=== PATIENT | female | born 1975 | race Caucasian/White ===

== ENCOUNTER 2017-01-30 08:26 | Observation (INO) | payer BC ==
[2017-01-07 12:45] VITALS: Ht 167.6 cm; Wt 63.5 kg
--- NOTE | 2017-01-07 13:17 | PAT Medication Instructions ---
Service Date January 07, 2017. Current Home Medication List Vwrmktw-Ozyjvitywotqq-Eojlmtzs (Excedrin Extra Strength), 1 TAB PO Q4-6HRS PRN for Pain Azathioprine (Imuran), 150 MG PO QPM Cetirizine (Zyrtec), 10 MG PO QAM Cholecalciferol (Vitamin D3), 2,000 INTERUNIT PO QAM Hydroxychloroquine Sulfate (Plaquenil), 400 MG PO QPM Ibuprofen (Advil), 600 MG PO Q8 PRN for Pain Multiple Vitamin (Multi Vitamin), 1 TAB PO QAM Naproxen (Aleve), 220 MG PO Q12 PRN for Pain Prednisone (Prednisone), 1 TAB PO QPM Vitamin B Cmplx/Vitc/Folic Ac (Nephrocaps), 1 CAP PO QAM Medication Instructions For Your Scheduled Surgery - Check with surgeon for instructions: Inozydv-Ryjpohketyuup-Nwlbnuwc (Excedrin Extra Strength), 1 TAB PO Q4-6HRS PRN for Pain Ibuprofen (Advil), 600 MG PO Q8 PRN for Pain Naproxen (Aleve), 220 MG PO Q12 PRN for Pain - Check with prescribing physician for instructions: Hydroxychloroquine Sulfate (Plaquenil), 400 MG PO QPM Azathioprine (Imuran), 150 MG PO QPM - Hold the following medications the morning of surgery: Vitamin B Cmplx/Vitc/Folic Ac (Nephrocaps), 1 CAP PO QAM Multiple Vitamin (Multi Vitamin), 1 TAB PO QAM Cetirizine (Zyrtec), 10 MG PO QAM Cholecalciferol (Vitamin D3), 2,000 INTERUNIT PO QAM - Take the following medications as scheduled the night before surgery: Prednisone (Prednisone), 1 TAB PO QPM If you have any questions please call us at [phone] (Laurie Jordan PA-C) or [phone] or [phone]
[2017-01-07 13:27] LABS: BASO % 0.2 %; BASO ABS # 0.01 K/uL (0-0.2); COMPLETE YES; EOS % 1.9 %; HEMATOCRIT 36.9 % (37-47); IG% 1.7 %; LYMPH % 4.8 %; LYMPH ABS # 0.23 K/uL (1.2-3.4); MEAN CELL VOLUME 98.1 fL (80-100); MEAN CORPUSCULAR HEMOGLOBIN 32.7 pg (25-34); MEAN CORPUSCULAR HGB CONC 33.3 g/dl (32-36); MEAN PLATELET VOLUME 9.2 fL (7.4-10.4); MONO % 7.9 %; NEUT % 83.5 %; PLATELET COUNT 336 K/uL (130-400); RED BLOOD COUNT 3.76 M/uL (4.2-5.4); WHITE BLOOD COUNT 4.81 K/uL (4.8-10.8)
[2017-01-07 15:28] LABS: BUN/CREATININE RATIO 10.9 (10-20); CALCIUM 8.6 mg/dl (8.5-10.1); CREATININE 0.92 mg/dl (0.60-1.20); POTASSIUM 3.8 mmol/L (3.5-5.1)
[2017-01-30] VITALS (8 sets, daily range): BP systolic 127–140; BP diastolic 86–94; PULSE 78–97; TEMP 36.4–36.8; O2SAT 93–100
[~2017-01-30] VITALS: Ht 167.6 cm; Wt 63.5 kg
[~2017-01-30 08:26] MED LIST: ASPI-391 PO; AZAT50TA5 PO; B-CO1CAP17 PO; CEFAZOLIN 2000 MG/60 ML D5W 50 ML IV SCH; CETI10TA84 PO; HYDR200T5 PO; IBUP-1050 PO; LACTATED RINGER'S 1000ML 1,000 ML IV SCH; MULT-1027 PO; NAPR1TAB9 PO; PRED-301 PO; VTMD1000 PO
[2017-01-30] MEDS ORDERED: LIDOCAINE HCL 2% 2 ML VIAL (20MG/ML) ONE (09:47)
[2017-01-30] MEDS ORDERED: HYDROmorphone INJ 2 MG/ML SYR/VIAL ONE (09:47)
[2017-01-30] MEDS ORDERED: GLYCOPYRROLATE INJ 0.2 MG/ML VIAL ONE ×2 (09:47→13:21)
[2017-01-30] MEDS ORDERED: NEOSTIGMINE METHYLSULFATE 5 MG/5 ML SYR ONE (09:47)
[2017-01-30] MEDS ORDERED: MIDAZOLAM HCL 1 MG/ML 2ML VIAL ONE (09:47)
[2017-01-30] MEDS ORDERED: FENTANYL CITRATE INJ 50 MCG/1 ML 2 ML VIAL ONE (09:47)
[2017-01-30] MEDS ORDERED: ROCURONIUM BROMIDE 10 MG/ML 5 ML VIAL ONE (09:47)
[2017-01-30] MEDS ORDERED: ONDANSETRON INJ 2 MG/ML 2 ML VIAL ONE (09:47)
[2017-01-30] MEDS ORDERED: DEXAMETHASONE SOD INJ 4 MG/ML VIAL ONE (09:47)
[2017-01-30] MEDS ORDERED: PROPOFOL IV EMULSION 10 MG/ML 20 ML VIAL IV ONE (09:47)
--- NOTE | 2017-01-30 10:26 | History & Physical Bridge Note ---
H&P Re-Evaluation Bridge Note: I have examined the patient, reviewed the History & Physical and in the interval since the performance of the History & Physical I have noted the following changes of clinical significance: No changes noted
[2017-01-30] MEDS ORDERED: HYDROCORTISONE SOD SUCCINATE 100 MG/2 ML VIAL ONE (10:43)
[2017-01-30] MEDS ORDERED: ATROPINE SULFATE 0.1 MG/ML 5ML SYR IV PRN (10:45)
[2017-01-30] MEDS ORDERED: KETOROLAC TROMETHAMINE 30 MG/ML VIAL IV. PRN (10:45)
[2017-01-30] MEDS ORDERED: PROMETHAZINE HCL INJ 12.5 MG in SODIUM CHLORIDE 0.9% 50ML 50 ML IV PRN (10:45)
[2017-01-30] MEDS ORDERED: METHYLENE BLUE 0.5% 10 ML VIAL ONE (10:45)
[2017-01-30] MEDS ORDERED: HYDROmorphone INJ 2 MG/ML SYR/VIAL IV PRN (10:45)
[2017-01-30] MEDS ORDERED: ONDANSETRON INJ 2 MG/ML 2 ML VIAL IV PRN (10:45)
[2017-01-30] MEDS ORDERED: MINERAL OIL LIGHT 10 ML BTL ONE (10:45)
[2017-01-30] MEDS ORDERED: LIDOCAINE HCL 1% 20 ML VIAL ONE (10:45)
[2017-01-30] MEDS ORDERED: LACTATED RINGER'S 1000ML 1,000 ML IV SCH (13:59)
--- NOTE | 2017-01-30 13:59 | [facility] Post Operative Brief Note ---
Immediate Operative Summary Operative Date January 30, 2017. Pre-Operative Diagnosis Long history of menorrhagia and failed endometrial ablation Post-Operative Diagnosis Same and Grossly Abnormal Looking Right Ovary Procedure(s) Performed Total Laparoscopic Hysterectomy, Right Salpingo-Oophorectomy and Cystoscopy Surgeon Dr Seb Cuellar Trim Die Maker Surgeon(s) Dr Alec Adams Estimated Blood Loss 100ml Findings dictated Fluids (cc crystalloids) 1200 Specimens A. Uterus and Cervix B. Right Fallopian Tube and Ovary Drains goldman cath Anesthesia GET Complication(s) None Disposition Recovery Room / PACU
[2017-01-30] MEDS ORDERED: ACETAMINOPHEN 325 MG TAB PO PRN (14:00)
[2017-01-30] MEDS ORDERED: OXYCODONE/ACETAMINOPHEN 5-325 TAB PO PRN (14:00)
[2017-01-30] MEDS ORDERED: ZOLPIDEM TARTRATE 5 MG TAB PO PRN (14:00)
[2017-01-30] MEDS ORDERED: PROMETHAZINE HCL INJ 25 MG in SODIUM CHLORIDE 0.9% 50ML 50 ML IV PRN (14:00)
[2017-01-30] MEDS ORDERED: BISACODYL 10 MG SUPP PR PRN (14:00)
[2017-01-30] MEDS ORDERED: MAGNESIUM HYDROXIDE SUSP 30 ML UDC PO PRN (14:00)
[2017-01-30] MEDS ORDERED: HYDROmorphone INJ 1 MG/ML SYR ONE (14:16)
[2017-01-30] MEDS ORDERED: IV FLUIDS COMPLETED PRN (15:00)
--- NOTE | 2017-01-30 15:12 | Anesthesiology Progress Note ---
Anesthesia Post Op Note Date & Time January 30, 2017 at 15:12 Vital Signs Pain Intensity: 3 Vital Signs Past 12 Hours Date Time Temp Pulse Resp B/P Pulse Ox O2 Delivery O2 Flow Rate FiO2 01/30/17 15:00 80 19 124/85 100 Nasal Cannula 2 01/30/17 14:45 71 13 119/81 100 Nasal Cannula 2 01/30/17 14:30 36.0 80 14 130/87 100 Nasal Cannula 2 01/30/17 14:20 76 18 137/91 100 Nasal Cannula 2 01/30/17 14:10 75 16 128/87 100 Mask 10 01/30/17 14:00 78 19 124/84 100 Mask 10 01/30/17 13:53 36.0 86 12 126/84 100 Mask 10 01/30/17 09:06 36.8 85 16 130/89 93 Room Air Notes Mental Status: alert / awake / arousable, participated in evaluation Pt Amnestic to Procedure: Yes Nausea / Vomiting: adequately controlled Pain: adequately controlled Airway Patency, RR, SpO2: stable & adequate BP & HR: stable & adequate Hydration State: stable & adequate Anesthetic Complications: no major complications apparent
[2017-01-30] MEDS: OXYCODONE/ACETAMINOPHEN 5-325 TAB PO PRN ×2 (18:37→23:48)
[2017-01-30] MEDS: ONDANSETRON INJ 2 MG/ML 2 ML VIAL IV PRN (19:40)
[2017-01-30] MEDS: PROMETHAZINE HCL INJ 12.5 MG in SODIUM CHLORIDE 0.9% 50ML 50 ML IV PRN ×2 (20:25→23:40)
[2017-01-30] MEDS: IBUPROFEN 600 MG TAB PO PRN (20:26)
[2017-01-30 20:53] LABS: HEMATOCRIT 31.5 % (37-47)
[2017-01-30] MEDS: DOCUSATE SODIUM 100 MG CAP PO SCH (20:55)
[2017-01-30] MEDS ORDERED: AZATHIOPRINE 50 MG TAB PO SCH (21:00)
[2017-01-30] MEDS ORDERED: HYDROXYCHLOROQUINE SULFATE 200 MG TAB PO SCH (21:00)
[2017-01-31] MEDS: SIMETHICONE 80 MG CHEW PO PRN ×2 (00:04→08:35)
[2017-01-31] MEDS: IBUPROFEN 600 MG TAB PO PRN ×2 (03:35→09:34)
[2017-01-31] MEDS: ONDANSETRON INJ 2 MG/ML 2 ML VIAL IV PRN (03:35)
[2017-01-31] MEDS: OXYCODONE/ACETAMINOPHEN 5-325 TAB PO PRN ×2 (03:36→08:36)
[2017-01-31 03:40] VITALS: BP 135/91; PULSE 79; TEMP 36.8; O2SAT 99
[2017-01-31 06:24] LABS: BASO % 0.1 %; BASO ABS # 0.01 K/uL (0-0.2); COMPLETE YES; EOS % 0.2 %; HEMATOCRIT 33.3 % (37-47); IG% 1.1 %; LYMPH % 5.9 %; LYMPH ABS # 0.49 K/uL (1.2-3.4); MEAN CELL VOLUME 98.5 fL (80-100); MEAN CORPUSCULAR HEMOGLOBIN 31.1 pg (25-34); MEAN CORPUSCULAR HGB CONC 31.5 g/dl (32-36); MEAN PLATELET VOLUME 9.3 fL (7.4-10.4); MONO % 3.8 %; NEUT % 88.9 %; PLATELET COUNT 304 K/uL (130-400); RED BLOOD COUNT 3.38 M/uL (4.2-5.4); WHITE BLOOD COUNT 8.24 K/uL (4.8-10.8)
[2017-01-31 06:56] LABS: BUN/CREATININE RATIO 19.7 (10-20); CREATININE 0.6 mg/dl (0.60-1.20); POTASSIUM 3.9 mmol/L (3.5-5.1)
[2017-01-31 08:15] VITALS: BP 129/90; PULSE 91; TEMP 36.7; O2SAT 98
[2017-01-31] MEDS: DOCUSATE SODIUM 100 MG CAP PO SCH (08:35)
--- NOTE | 2017-01-31 11:08 | Surgery Progress Note ---
Surgery Progress Note Date of Service January 31, 2017. Subjective Post OP Day: 1 + ambulating, + flatus, + pain controlled, No SOB, No bowel movement, No chest pain, No complaints, No diet, No nausea, No vomiting pt doing well.no complaints Objective Vital Signs: Date Time Temp Pulse Resp B/P Pulse Ox O2 Delivery O2 Flow Rate FiO2 01/31/17 08:15 36.7 91 18 129/90 98 Room Air 01/31/17 08:15 98 Room Air 01/31/17 03:40 36.8 79 16 135/91 99 Room Air 01/30/17 23:45 36.7 78 18 136/92 100 Room Air 01/30/17 23:40 Room Air 01/30/17 20:30 36.6 83 16 127/86 98 Room Air 01/30/17 18:20 36.6 97 18 140/94 97 Room Air 01/30/17 17:20 36.6 89 18 136/92 99 Room Air 01/30/17 16:20 36.4 89 20 130/87 99 Room Air 01/30/17 15:50 36.5 88 16 128/88 97 Room Air 01/30/17 15:20 96 Room Air 01/30/17 15:20 96 Room Air 01/30/17 15:20 36.5 86 18 129/88 96 Room Air 01/30/17 15:00 80 19 124/85 100 Nasal Cannula 2 01/30/17 14:45 71 13 119/81 100 Nasal Cannula 2 01/30/17 14:30 36.0 80 14 130/87 100 Nasal Cannula 2 01/30/17 14:20 76 18 137/91 100 Nasal Cannula 2 01/30/17 14:10 75 16 128/87 100 Mask 10 01/30/17 14:00 78 19 124/84 100 Mask 10 01/30/17 13:53 36.0 86 12 126/84 100 Mask 10 General Appearance: WD/WN, no apparent distress Head: normocephalic, atraumatic Neck: supple, no adenopathy, thyroid normal, no JVD, no carotid bruits, trachea midline Cardiovascular: regular rate, rhythm, no edema, no gallop, no JVD, no murmur Abdomen: normal bowel sounds, non tender, non distended, soft, no organomegaly , no pulsatile mass Incision(s): clean, dry, intact, no erythema, no drainage Extremities: normal range of motion, non-tender, normal inspection, no pedal edema, no calf tenderness, normal capillary refill, pelvis stable Laboratory Results: Results Past 24 Hours Test 01/30/17 20:47 01/31/17 06:13 Range/Units Hemoglobin 10.5 10.5 12.0-16.0 g/dL Hematocrit 31.5 33.3 37-47 % White Blood Count 8.24 4.8-10.8 K/uL Red Blood Count 3.38 4.2-5.4 M/uL Mean Corpuscular Volume 98.5 80-100 fL Mean Corpuscular Hemoglobin 31.1 25-34 pg Mean Corpuscular Hemoglobin Concent 31.5 32-36 g/dl Platelet Count 304 130-400 K/uL Mean Platelet Volume 9.3 7.4-10.4 fL Neutrophils (%) (Auto) 88.9 % Lymphocytes (%) (Auto) 5.9 % Monocytes (%) (Auto) 3.8 % Eosinophils (%) (Auto) 0.2 % Basophils (%) (Auto) 0.1 % Neutrophils # (Auto) 7.32 1.4-6.5 K/uL Lymphocytes # (Auto) 0.49 1.2-3.4 K/uL Monocytes # (Auto) 0.31 0.11-0.59 K/uL Eosinophils # (Auto) 0.02 0-0.5 K/uL Basophils # (Auto) 0.01 0-0.2 K/uL RDW Standard Deviation 59.4 36.4-46.3 fL RDW Coefficient of Variation 16.5 11.5-14.5 % Immature Granulocyte % (Auto) 1.1 % Immature Granulocyte # (Auto) 0.09 0.00-0.02 K/uL Sodium Level 141 136-145 mmol/L Potassium Level 3.9 3.5-5.1 mmol/L Chloride Level 109 98-107 mmol/L Carbon Dioxide Level 26 21-32 mmol/L Anion Gap 6.0 3-11 mmol/L Blood Urea Nitrogen 12 7-18 mg/dl Creatinine 0.60 0.60-1.20 mg/dl Est Creatinine Clear Calc Drug Dose 116.6 ml/min Estimated GFR () 132.1 Estimated GFR (Non- 114.0 BUN/Creatinine Ratio 19.7 10-20 Random Glucose 97 70-99 mg/dl Calcium Level 8.0 8.5-10.1 mg/dl Assessment & Plan Pt doing well no complaints disch home with instructions
[2017-01-31] MEDS ORDERED: MTR600X PO (11:10)
[2017-01-31] MEDS ORDERED: OXYC-57 PO (11:10)
--- NOTE | 2017-01-31 11:13 | Discharge Instructions ---
Discharge Instructions Date of Service January 31, 2017. Admission Reason for Admission: Failed Endometrial Ablation Discharge Discharge Diagnosis / Problem: postop Discharge Goals Goal(s): Routine recovery after surgery Activity Recommendations Activity Limitations: as noted below POST OPERATIVE: BOWEL FUNCTION/MEDICATIONS: 1. Constipation pain and discomfort are the most common complaints 5-7 days after surgery. Points 2-6 address the things that can help. 2. Chewing gum can help stimulate the gut and help improve digestion and motility. 3. Milk of Magnesia 1-2 times per day until return of bowel function. 4. Colace is a stool softener that helps. Taking this 2-3 times per day until bowel function returns to normal is highly recommended. 5. Dulcolax is a laxative that may be used if several days have passed without a bowel movement. Alternatively Miralax may be used daily instead. 6. Drink plenty of fluids as this will also reduce constipation. 7. Narcotic pain medications will be prescribed by your physician. They are safe to use and we encourage you to use them. If you are not allergic, ibuprofen will also be prescribed. Many patients will be able to transition off of the narcotic medications to ibuprofen by postoperative day 3. ACTIVITY RECOMMENDATIONS: 1. Get plenty of rest and listen to your body. If you are tired, take a nap. 2. You may shower, but do not take a tub bath until you see your doctor at the 2 week post operative visit. 3. Absolutely NO intercourse and nothing in the vagina until you are examined by your doctor at the 6 week visit. At that visit it will be determined when such activities can be resumed. This can range from 6-12 weeks after your surgery depending on healing time. 4. The main physical activity in the first week should be walking. By the second week you can slowly increase activity. There are no limits on walking up and down stairs. 5. Do not lift more than 5-10 lbs for 4 weeks. Remember the "one-handed rule", i.e. if you can lift something with only one hand it's likely okay. 6. Minimize programming intern like vacuuming and exercising for 4 weeks. "Overdoing it" can lead to incisions not healing, pain and vaginal bleeding , so again, listen to your body. 7. Driving can be resumed when you feel able. Do not drive within 24 hours of taking a narcotic medication. EXPECTATIONS: 1. Vaginal spotting, bleeding and discharge are common after surgery. There may even be an odor to the discharge which is often related to sutures used in the vagina. If you experience heavy vaginal bleeding, call the office number day or night [phone]. 2. Bladder discomfort is common after surgery from the catheter. This usually resolves in 1-2 weeks. 3. By the end of the 3rd or 4th week you should be feeling much better. It may take up to 6 weeks for your energy levels to return to normal. 4. Narcotic medications have side effects such as: dizziness, headache, nausea and/or vomiting. If you suspect your pain medication is causing problems, call our office and we may be able to prescribe an alternate medication. 5. The skin incisions are often covered with a liquid bandage. This will gradually peel off over time. CALL THE OFFICE IF YOU HAVE ANY OF THE FOLLOWIN. Temperature of 101 degrees or higher. 2. Severe abdominal or pelvic pain not relieved by pain medication. 3. Persistent nausea or vomiting. 4. Increased pain with urination or difficulty urinating. 5. Bright red bleeding that soaks more than 1 pad per hour. CONTACT PHONE NUMBERS: Main Office: [phone] FOLLOW-UP: Post-Operative Appointments: * Individual instructions will have been given about the timing of your first examination, but this is usually at the end of the second week home. * You will need to call the office at soon after discharge to make the appointment for your post-op check-up if it has not already been scheduled. * Additional information regarding activity, sexual intercourse and when to return to work will be given at this appointment. WE WISH YOU A SPEEDY RECOVERY! . Current Hospital Diet Patient's current hospital diet: Regular Diet Discharge Diet Recommended Diet: Regular Diet Procedures Procedures Performed: Total Laparoscopic Hysterectomy, Right Salpingo-Oophorectomy and Cystoscopy Pending Studies Studies pending at discharge: no Medical Emergencies . Who to Call and When: Medical Emergencies: If at any time you feel your situation is an emergency, please call 911 immediately. . Non-Emergent Contact Non-Emergency issues call your: Specialist . . "Provider Documentation" section prepared by Seb Cuellar. . VTE Core Measure Inpt VTE Proph given/why not?: Treatment not indicated
[2017-01-31 11:55] VITALS: BP 130/90; PULSE 89; TEMP 36.8; O2SAT 97
--- NOTE | 2017-01-31 12:14 | DISCHARGE SUMMARY ---
DATE OF DISCHARGE: 01/31/2017. CHIEF COMPLAINT: 1. History of menorrhagia, failed endometrial ablation. 2. History of persistent cervical dysplasia. HISTORY OF PRESENT ILLNESS: This is a 42-year-old G1, P1 with history of menorrhagia. The patient has failed endometrial ablation and long history ofcervical dysplasia. The patient agreed to undergo hysterectomy. The patient arrived at [facility] on 01/30/2017 where she underwent total laparoscopic hysterectomy with right salpingo-oophorectomy. During surgery, the right adnexa appeared grossly abnormal. Decision was therefore made to remove the right adnexa in addition to the removal of the uterus and cervix. The patient did well with surgery and postop she continued to do well. Today, she is doing well and able to ambulate, tolerate p.o. food and meds. There is very minimal discharge. Incision was clean and dry. The patient has been discharged home in stable condition. PAST MEDICAL HISTORY: 1. The patient has history of herpes zoster. 2. History of persistent high grade squamous intraepithelial lesion. 3. History of lupus. PAST SURGICAL HISTORY: The patient has had colposcopies, hysteroscopies, bilateral tubal ligation and shoulder arthroscopy. FAMILY HISTORY: Noncontributory. SOCIAL HISTORY: The patient denies tobacco, drug or alcohol use. MEDICATIONS: The patient is on vitamin D. She is on prednisone. She is on Zantac. She is on Imuran and Plaquenil. ALLERGIES: THE PATIENT HAS ALLERGY TO AZITHROMYCIN, AND CLINDAMYCIN. REVIEW OF SYSTEMS: Negative except as dictated in the HPI. PHYSICAL EXAMINATION: GENERAL: Well-developed, well-nourished white female in no acute distress. VITAL SIGNS: Temperature is 36.7, pulse is 91, blood pressure is 129/90. LABORATORY DATA: On 01/31/2017 showed hemoglobin of 10.5, hematocrit of 33.3, platelets of 304,000. CONDITION ON DISCHARGE: Stable. OPERATIONS: Total laparoscopic hysterectomy with right salpingo-oophorectomy. DISCHARGE DIAGNOSES: Postop after total laparoscopic hysterectomy with right salpingo-oophorectomy. PLAN ON DISCHARGE: The patient is discharged home with instructions regarding activity, diet, follow-up appointment and medications. LESLEY
--- NOTE | 2017-02-03 07:05 | OPERATIVE REPORT ---
DATE OF OPERATION: 01/30/2017 INDICATION FOR SURGERY: This is a 42-year-old history of menorrhagia status post failed endometrial ablation. She also had a long of history of cervical dysplasia. PREOPERATIVE DIAGNOSIS: 1. History of menorrhagia. 2. Failed endometrial ablation. 3. History of cervical dysplasia. POSTOPERATIVE DIAGNOSIS: Same, plus grossly abnormal looking right ovary. PROCEDURES: 1. Total laparoscopic hysterectomy. 2. Right salpingo-oophorectomy. 3. Cystoscopy. SURGEON: Dr. Cuellar. RECOVERY AUDITOR: Dr. Adams. ESTIMATED BLOOD LOSS: 600 mL IV FLUIDS: 1200 mL URINE OUTPUT: 300 mL PATHOLOGY: 1. Uterus with cervix. 2. Right tube and ovary. DRAINS: Martínez catheter. ANESTHESIA: General, Dr. Giles in attending. COMPLICATIONS: None. DISPOSITION: Stable to recovery room. FINDINGS: Normal female escutcheon. There are no lesions in the vagina. Vulva appears grossly normal. Intra-abdominal findings showed 8-10 weeks' size uterus. The left adnexa appeared grossly normal. The right adnexa; however, showed a grossly abnormal looking cyst filled. The rest of the abdominal exam is unremarkable. PROCEDURE: The patient was taken to the operating room where she was prepped and draped in normal sterile fashion in dorsal lithotomy position after time out was called. A heavy weighted speculum was placed in the vagina. A Nelson retractor was used to retract the anterior part of the vagina. A medium sized VCare vaginal retractor was placed into the uterus without difficulty. The retractor was stabilized with Vicryl sutures. This was to help manipulate the uterus during laparoscopy. Martínez catheter was placed in the bladder. Attention was paid to the abdominal part of the procedure where an infraumbilical incision was made and carried down to the fascia. Fascia was identified. The Veress needle was carefully directed into the abdomen at a 45 degree angle while tenting up the abdomen. Intra-abdominal placement was confirmed with a water filled syringe. The abdomen was insufflated with CO2 gas of 3 liters. The Veress needle was removed and the trocar is introduced into the abdomen under direct visualization. This was a nonbladed trocar. Once inside the abdomen, the laparoscope was repositioned. Two lateral trocars, 10 mm as well placed in the lower pelvis, all under direct visualization. The pelvic and abdominal findings are as dictated above. Once inside the abdomen, the patient was placed in Trendelenburg position to better visualize the pelvis. The left round ligament was identified, grabbed in the midsection and fulgurated. The broad ligament was carefully dissected. The dissection was carried down through the broad ligament on that side and then bladder flap was created. Same procedure was performed on the contralateral side. The bladder was carefully dissected off the lower segment of the uterus. The infundibulopelvics on both sides were carefully fulgurated and dissected. There was good hemostasis. The dissection was carried down through the uterines, the cardinal ligaments and to the uterosacrals. There was good hemostasis at end of all this dissection. The VCare could now be seen and easily palpated. Using the 5 mm LigaSure, which was used for all this dissection and fulguration was used to transect the uterus and cervix from the VCare. The transection was done in a circumferential manner along the green colored portion of the VCare. The uterus was pulled out and used to maintain pneumoperitoneum while dissection of the right adnexa was performed. The right adnexa, which involved the ovary and the tube was carefully dissected off the side wall. The ureter could be seen on that side through its peristalsis. There was good hemostasis at the end of the procedure and the uterus and cervix as well as the right adnexa was carefully pulled out of the vagina without any difficulty. A glove filled with gauze was placed in the vagina to help maintain pneumoperitoneum. Copious amount of irrigation at this point was used to irrigate the pelvis. The vaginal cuffs appeared to be stable with no bleeding. The vaginal cuff was closed in a locking fashion using an EndoStitch with a poly absorbent suture. The peritoneum was closed with the same suture in a running fashion. More irrigation was used to irrigate the abdomen. The cystoscopy part of the procedure was performed with a 70-degree scope. Visualization of the bladder showed no sutures or masses or lesions. Both urethral openings were identified. The patient had been given methylene blue dye earlier which was seen jetting out of both urethral openings without any difficulty. The scope was removed from the bladder under lot of care. Attention was paid back to the abdominal part of the procedure, where the 3 abdominal incisions are closed in 2 layers. All fascias are closed with 0 Vicryl. SubQ spaces are irrigated and closed with 2-0 plain and skin incisions are closed with 4-0 Monocryl. All instruments were removed from the abdomen and the vagina and the bladder and accounted for x2. The patient is doing well in recovery. I attest to the content of the Intraoperative Record and any orders documented therein. Any exceptions are noted below. MTDD
== END 2017-01-31 12:05 | disposition home or self-care (01) ==
LOC: ENRESERVTM → ENRESERVDT → C.ACU 08:26 → C.MS4N 08:35
PROVIDERS: ADMIT Obstetrics & Gynecology; ATTEND Obstetrics & Gynecology
DX: N92.0 Excessive and frequent menstruation with regular cycle (principal); Z87.410 Personal history of cervical dysplasia

== ENCOUNTER 2017-02-10 08:40 | Emergency (ER) | payer BC ==
[~2017-02-10] VITALS: Ht 167.6 cm; Wt 62.7 kg
[~2017-02-10 08:40] MED LIST changes: -CEFAZOLIN 2000 MG/60 ML D5W 50 ML IV SCH; -LACTATED RINGER'S 1000ML 1,000 ML IV SCH; +MTR600X PO; +OXYC-57 PO
[2017-02-10 08:43] VITALS: TEMP 36.8; Ht 167.6 cm; Wt 62.7 kg
[2017-02-10] MEDS ORDERED: SODIUM CHLORIDE 0.9% 1000ML 1,000 ML IV STA (09:00)
[2017-02-10] MEDS ORDERED: SODIUM CHLORIDE 0.9% 500ML 500 ML IV STA (09:00)
[2017-02-10 09:10] VITALS: O2SAT 99
--- NOTE | 2017-02-10 09:11 | EMERGENCY ROOM VISIT NOTE ---
History Report prepared by Abbey: Sumi Renee Under the Supervision of: Dr. Laney West M.D. First contact with patient: 08:50 Chief Complaint: RESPIRATORY PROBLEMS Stated Complaint: SHARP PAINS RIGHT SIDE BELOW RIB CAGE History of Present Illness The patient is a 42 year old female who presents to the Emergency Room with complaints of constant sharp right sided rib pain beginning yesterday. The patient states that she recently had a hysterectomy and began having right sided pain below her ribs yesterday. She notes that she went for a follow up appointment and her doctor advised her to come in to the ED if her pain persisted to check for a clot. She denies any fever, shortness of breath, cough , swelling in the ankles or legs, and calf pain. The patient notes a history of lupus and reports that she has no history of blood clots. Source of History: patient Onset: yesterday Position: other (rib) Quality: sharp Timing: constant Associated Symptoms: No fevers, No cough, No SOB Note: She denies any swelling in the ankles or legs, and calf pain. Review of Systems See HPI for pertinent positives & negatives. A total of 10 systems reviewed and were otherwise negative. Past Medical & Surgical Medical Problems: (1) Lupus Family History No pertinent family history stated. Social History Smoking Status: Never Smoker Drug Use: none Marital Status: Housing Status: lives with family Occupation Status: employed Current/Historical Medications Scheduled Azathioprine (Imuran), 150 MG PO QPM Cetirizine (Zyrtec), 10 MG PO QAM Cholecalciferol (Vitamin D3), 2,000 INTERUNIT PO QAM Hydroxychloroquine Sulfate (Plaquenil), 400 MG PO QPM Multiple Vitamin (Multi Vitamin), 1 TAB PO QAM Prednisone (Prednisone), 1 TAB PO QPM Vitamin B Cmplx/Vitc/Folic Ac (Nephrocaps), 1 CAP PO QAM Scheduled PRN Foowabh-Zcuhdvenklcth-Ptqftxgr (Excedrin Extra Strength), 1 TAB PO Q4-6HRS PRN for Pain Ibuprofen (Ibuprofen), 600 MG PO Q6H PRN for Pain,SMALL,cramping,or fever Naproxen (Aleve), 220 MG PO Q12 PRN for Pain Oxycodone/Acetaminophen 5MG/325MG (Percocet 5MG/325MG), 1 TAB PO Q4H PRN for Pain (pain scale 1-5) Allergies Coded Allergies: Azithromycin (Verified Allergy, Severe, HIVES, 02/10/17) Clindamycin (Verified Allergy, Severe, HIVES, 02/10/17) Physical Exam Vital Signs Date Time Temp Pulse Resp B/P (MAP) Pulse Ox O2 Delivery O2 Flow Rate FiO2 02/10/17 12:08 71 18 122/90 96 02/10/17 09:24 99 Room Air 02/10/17 09:10 99 Room Air 02/10/17 08:56 97 02/10/17 08:43 36.8 89 18 118/73 93 Room Air Physical Exam Vital signs reviewed. General: Well-appearing, in no significant distress. HEENT: No scleral icterus, PERRLA, neck supple. Atraumatic. Cardiovascular: Regular rate and rhythm, no extra sounds. Pulmonary: Clear to auscultation bilaterally, normal work of breathing. Splinting with deep breathing. Abdomen: Soft, nontender, nondistended, positive bowel sounds. Musculoskeletal: Atraumatic, no peripheral edema. Neurologic: Patient awake alert and oriented x 3, full strength in all 4 extremities. Cranial nerves 2 through 12 grossly intact. Skin: Warm, dry, no rash Medical Decision & Procedures ER Provider Diagnostic Interpretation: CT results as stated below per my review and radiologist interpretation: CT ANGIOGRAM OF THE CHEST FINDINGS: There is a 5 mm right lobe thyroid calcification. No pathologically enlarged axillary mediastinal or hilar lymph nodes were visualized. There was no evidence of thoracic aortic dilatation. There were no pulmonary artery filling defects to indicate acute pulmonary embolism. No pleural effusions are visualized. There is no lobar consolidation. There are dependent bibasilar opacities, likely atelectatic. There is a small sclerotic density within an upper thoracic vertebral body, likely representing a bone island. IMPRESSION: 1. No evidence of acute pulmonary embolism 2. No evidence of pathologic adenopathy 3. Dependent opacities statistically atelectatic Electronically signed by: Chandu Radford M.D. 02/10/2017 11:14 AM Dictated Date/Time: 02/10/2017 11:10 AM Laboratory Results 02/10/17 09:15 Red Blood Count 3.71, Mean Corpuscular Volume 97.6, Mean Corpuscular Hemoglobin 32.1, Mean Corpuscular Hemoglobin Concent 32.9, Mean Platelet Volume 9.2, Neutrophils (%) (Auto) 85.6, Lymphocytes (%) (Auto) 6.7, Monocytes (%) (Auto) 4.1, Eosinophils (%) (Auto) 2.6, Basophils (%) (Auto) 0.2, Neutrophils # (Auto) 4.34, Lymphocytes # (Auto) 0.34, Monocytes # (Auto) 0.21, Eosinophils # (Auto) 0.13, Basophils # (Auto) 0.01 02/10/17 09:15 Test 02/10/17 09:15 02/10/17 09:21 White Blood Count 5.07 K/uL (4.8-10.8) Red Blood Count 3.71 M/uL (4.2-5.4) Hemoglobin 11.9 g/dL (12.0-16.0) Hematocrit 36.2 % (37-47) Mean Corpuscular Volume 97.6 fL (80-100) Mean Corpuscular Hemoglobin 32.1 pg (25-34) Mean Corpuscular Hemoglobin Concent 32.9 g/dl (32-36) Platelet Count 400 K/uL (130-400) Mean Platelet Volume 9.2 fL (7.4-10.4) Neutrophils (%) (Auto) 85.6 % Lymphocytes (%) (Auto) 6.7 % Monocytes (%) (Auto) 4.1 % Eosinophils (%) (Auto) 2.6 % Basophils (%) (Auto) 0.2 % Neutrophils # (Auto) 4.34 K/uL (1.4-6.5) Lymphocytes # (Auto) 0.34 K/uL (1.2-3.4) Monocytes # (Auto) 0.21 K/uL (0.11-0.59) Eosinophils # (Auto) 0.13 K/uL (0-0.5) Basophils # (Auto) 0.01 K/uL (0-0.2) RDW Standard Deviation 58.8 fL (36.4-46.3) RDW Coefficient of Variation 16.5 % (11.5-14.5) Immature Granulocyte % (Auto) 0.8 % Immature Granulocyte # (Auto) 0.04 K/uL (0.00-0.02) Anion Gap 5.0 mmol/L (3-11) Est Creatinine Clear Calc Drug Dose 93.3 ml/min Estimated GFR () 115.6 Estimated GFR (Non- 99.7 BUN/Creatinine Ratio 15.4 (10-20) Calcium Level 8.6 mg/dl (8.5-10.1) Bedside Troponin I 0.000 ng/ml (0-0.045) Laboratory results per my review. Medications Administered Medications (Trade) Dose Ordered Sig/Jojo Route Start Time Stop Time Status Last Admin Dose Admin Sodium Chloride 500 ml @ 999 mls/hr Q31M STAT IV 02/10/17 09:00 02/10/17 09:30 DC 02/10/17 09:00 999 MLS/HR ECG Indication: abdominal pain Rate (beats per minute): 88 Rhythm: normal sinus Findings: no acute ischemic change, no ectopy, other (possible previous anterior infarct ) ED Course 0853: Past medical records reviewed. The patient was evaluated in room B12. A complete history and physical examination was performed. 0900: Sodium Chloride 1000 ml @ 125 mls/hr IV, Sodium Chloride 500 ml @ 999 mls/ hr IV. 1134: I reevaluated and updated the patient. 1153: Upon reevaluation, the patient appeared to have improvement of her symptoms. I discussed findings with the patient. She verbalized agreement of the treatment plan. The patient was discharged home. Medical Decision Differential diagnosis: Acute coronary syndrome, pulmonary embolus, aortic dissection, musculoskeletal pain, pneumonia, pleural effusion, pneumothorax Medication Reconciliation: I attest that I have personally reviewed the patient' s current medication list. Blood Pressure Screening: Patient was found to have normal blood pressure on screening and does not require follow-up. This patient was evaluated and appeared to be in no significant distress. IV access was obtained and laboratory work was drawn. The patient was placed on the guard museum and found to be in a normal sinus rhythm. Chest CT was performed due to the patient's recent surgical history and history of lupus. There is no evidence of PE. There is no infiltrative change. Patient's pain is likely secondary to retained air or stool. Laboratory work is fairly unrevealing. She was advised to use ibuprofen as needed for pain and to follow- up with her primary care physician and [facility] this week for reevaluation. She will return to the ER for worsening of symptoms or any medical concerns. Impression Primary Impression: Pleuritic chest pain Scribe Attestation The scribe's documentation has been prepared under my direction and personally reviewed by me in its entirety. I confirm that the note above accurately reflects all work, treatment, procedures, and medical decision making performed by me. Departure Information Dispostion Home / Self-Care Referrals Seb Cuellar MD (PCP) Forms HOME CARE DOCUMENTATION FORM, IMPORTANT VISIT INFORMATION, WORK / SCHOOL INSTRUCTIONS Patient Instructions My [facility] Additional Instructions Diagnosis: Pleuritic right chest pain Ibuprofen 600 mg every 6 hours as needed for pain with food. Drink plenty of clear fluids. Follow-up with your physician this week. Return to the ER for worsening of symptoms or any medical concerns.
[2017-02-10] MEDS ORDERED: OPTIRAY 320 IV PRN (09:15)
[2017-02-10 09:29] LABS: BASO % 0.2 %; BASO ABS # 0.01 K/uL (0-0.2); COMPLETE YES; EOS % 2.6 %; HEMATOCRIT 36.2 % (37-47); IG% 0.8 %; LYMPH % 6.7 %; LYMPH ABS # 0.34 K/uL (1.2-3.4); MEAN CELL VOLUME 97.6 fL (80-100); MEAN CORPUSCULAR HEMOGLOBIN 32.1 pg (25-34); MEAN CORPUSCULAR HGB CONC 32.9 g/dl (32-36); MEAN PLATELET VOLUME 9.2 fL (7.4-10.4); MONO % 4.1 %; NEUT % 85.6 %; PLATELET COUNT 400 K/uL (130-400); RED BLOOD COUNT 3.71 M/uL (4.2-5.4); WHITE BLOOD COUNT 5.07 K/uL (4.8-10.8)
[2017-02-10 09:43] LABS: BUN/CREATININE RATIO 15.4 (10-20); CALCIUM 8.6 mg/dl (8.5-10.1); CREATININE 0.75 mg/dl (0.60-1.20); POTASSIUM 3.8 mmol/L (3.5-5.1)
--- NOTE | 2017-02-10 11:15 | DIAGNOSTIC IMAGING REPORT ---
CT ANGIOGRAM OF THE CHEST CLINICAL HISTORY: Right-sided pleuritic chest pain. Shortness of breath. COMPARISON STUDY: No previous studies for comparison. TECHNIQUE: Following the IV administration of 94 mL of Optiray-320, CT angiogram of the thorax was performed from the thoracic inlet to the lung bases utilizing the pulmonary embolus protocol. Images are reviewed in the axial, sagittal, and coronal planes. IV contrast was administered without complication. MIP imaging was performed. CT DOSE: 174.37 mGy.cm FINDINGS: There is a 5 mm right lobe thyroid calcification. No pathologically enlarged axillary mediastinal or hilar lymph nodes were visualized. There was no evidence of thoracic aortic dilatation. There were no pulmonary artery filling defects to indicate acute pulmonary embolism. No pleural effusions are visualized. There is no lobar consolidation. There are dependent bibasilar opacities, likely atelectatic. There is a small sclerotic density within an upper thoracic vertebral body, likely representing a bone island. IMPRESSION: 1. No evidence of acute pulmonary embolism 2. No evidence of pathologic adenopathy 3. Dependent opacities statistically atelectatic Electronically signed by: Chandu Radford M.D. 02/10/2017 11:14 AM Dictated Date/Time: 02/10/2017 11:10 AM
[2017-02-10 12:08] VITALS: BP 122/90; PULSE 71; O2SAT 96
== END 2017-02-10 12:05 | disposition home or self-care (01) ==
LOC: C.EDB 08:41
DX: R07.81 Pleurodynia (principal); M32.9 Systemic lupus erythematosus, unspecified; Z79.899 Other long term (current) drug therapy

== ENCOUNTER → 2017-06-25 | Outpatient (CLI) | payer BC ==
[~2017-06-25] MED LIST changes: -IBUP-1050 PO
== END | disposition home or self-care (01) ==
LOC: C.MAMM 15:37
PROVIDERS: ATTEND Nurse Practitioner Family
DX: M85.851 Other specified disorders of bone density and structure, right thigh (principal); M85.852 Other specified disorders of bone density and structure, left thigh; M85.88 Other specified disorders of bone density and structure, other site